=== PATIENT | male | born 1960 | race Caucasian/White ===

== ENCOUNTER 2017-04-13 14:22 | Emergency (ER) | payer MEDICAID ==
[~2017-04-13] VITALS: Ht 177.8 cm; Wt 100.0 kg
[2017-04-13] MEDS ORDERED: HYDROCODONE/ACETAMINOPHEN 5-325 MG TABLET PO ONE (15:15)
[2017-04-13] MEDS ORDERED: MORPHINE SULFATE 4 MG/ML SYRINGE IVP ONE (17:15)
[2017-04-13 17:36] VITALS: BP 176/79
[2017-04-13] MEDS ORDERED: DEXAMETHASONE SOD PHOS 4 MG/ML 5 ML VIAL IVP ONE (17:45)
[2017-04-13] MEDS ORDERED: CeFAZolin 1 GM/DEXTROSE 50 ML IV ONE (17:45)
== END 2017-04-13 18:20 | disposition short-term general hospital (02) ==
LOC: EMS 14:23
DX: S02.82XA Fracture of other specified skull and facial bones, left side, initial encounter for closed fracture (principal); H11.32 Conjunctival hemorrhage, left eye; I51.9 Heart disease, unspecified; Y04.2XXA Assault by strike against or bumped into by another person, initial encounter; Y93.89 Activity, other specified; Y92.89 Other specified places as the place of occurrence of the external cause; Y99.8 Other external cause status
CPT/HCPCS: 70450; 70486; 96374; 96375; 99285; J0690; J1100; J2270